=== PATIENT | male | born 1955 | race Caucasian/White ===

== ENCOUNTER 2024-01-16 11:13 | Emergency (ER) | payer BC, MEDICARE ==
[2024-01-16 12:20] LABS: INR-International Normal Ratio 1.1
[2024-01-16 12:21] LABS: PTT 25.9 sec (22.9-36.1)
[2024-01-16 12:29] LABS: Anion Gap 12 mmol/L (10-20); BUN (Urea Nitrogen) 23 mg/dL (8.4-25.7); Calc. Creatinine Clearance 0 mL/min (70-130); Calcium 8.6 mg/dL (7.8-10.44); Carbon Dioxide 21 mmol/L (23-31); Chloride 108 mmol/L (98-107); Estimated GFR 71; Glucose 109 mg/dL (80-115); Potassium 4.9 mmol/L (3.5-5.1); Sodium 136 mmol/L (136-145)
[2024-01-16 12:30] LABS: Hematocrit 45.9 % (42.0-52.0); Hemoglobin 14.4 g/dL (14.0-18.0); Mean Corpuscular HGB CONC 31.4 g/dL (32.0-36.0); Mean Corpuscular Hemoglobin 29.6 pg (27.0-31.0); Mean Corpuscular Volume 94.3 fl (78.0-98.0); Mean Platelet Volume 7.1 fL (7.4-10.4); Platelet Count 132 10x3/uL (130-400); RBC Distribution Width 12.5 % (11.5-14.5); Red Blood Cell (RBC) Count 4.87 mill/uL (4.70-6.10); White Blood Cell (WBC) Count 10.5 10x3/uL (4.8-10.8)
[2024-01-16 12:31] LABS: Band 4 % (5-11); Lymphocytes 17 % (21-51); MDiff Complete? YES; Manual Diff?? YES; Monocytes 6 % (0-10); Neutrophil 72 % (42-75)
[2024-01-16 12:32] LABS: Anisocytosis SLIGHT = 6-15 cells (100X) (0-5/hpf); Platelet Adequacy Comment Appears Adequate
[2024-01-16 12:33] LABS: Troponin I Less than 0.010 ng/mL (< 0.028)
== END 2024-01-16 15:24 | disposition short-term general hospital (02) ==
LOC: MADERS 11:13
DX: R55 Syncope and collapse (principal); I25.119 Atherosclerotic heart disease of native coronary artery with unspecified angina pectoris; E86.0 Dehydration; I95.9 Hypotension, unspecified; T50.905A Adverse effect of unspecified drugs, medicaments and biological substances, initial encounter; E78.00 Pure hypercholesterolemia, unspecified; F17.220 Nicotine dependence, chewing tobacco, uncomplicated; Z79.82 Long term (current) use of aspirin; Z79.899 Other long term (current) drug therapy
CPT/HCPCS: 12001; 36415; 71045; 80048; 83880; 84484; 85025; 85610; 85730; 93005

== ENCOUNTER 2025-03-12 12:36 | Emergency (ER) | payer MEDICARE, OTHER ==
[2025-03-12] MEDS ORDERED: Lidocaine 1% (PF) 30 ML VIAL ONE (13:17)
[2025-03-12] MEDS ORDERED: Boostrix 0.5 ML (Tdap) VIAL (>/=7 yrs of age) ONE (13:17)
[2025-03-12] MEDS ORDERED: Bacitracin 1 PK ONE (13:50)
== END 2025-03-12 14:08 | disposition home or self-care (01) ==
LOC: MADERS 12:36
DX: S51.811A Laceration without foreign body of right forearm, initial encounter (principal); E78.00 Pure hypercholesterolemia, unspecified; I25.10 Atherosclerotic heart disease of native coronary artery without angina pectoris; F17.220 Nicotine dependence, chewing tobacco, uncomplicated; Z23 Encounter for immunization; Z79.82 Long term (current) use of aspirin; Z79.899 Other long term (current) drug therapy; W55.82XA Struck by other mammals, initial encounter
CPT/HCPCS: 12004; 90471; 90715